=== PATIENT | male | born 1950 | race Caucasian/White ===

== ENCOUNTER 2017-02-06 20:38 | Emergency (ER) | payer MEDICAID, OTHER ==
[~2017-02-06] VITALS: Ht 172.7 cm; Wt 75.0 kg
[~2017-02-06 20:38] MED LIST: ACET325 PO; CALC500 PO; HYDR-3133 PO; LISI-591 PO; LORTA5 PO; PRIM250T PO; SERT100 PO; SIMV10 PO; TAB-TAB PO; XARE10TA PO
[2017-02-06 20:57] VITALS: BP 175/93; PULSE 104; RESP 18; TEMP 99.3; O2SAT 95
[2017-02-06 21:56] VITALS: BP 188/95; PULSE 105; RESP 18; O2SAT 98
[2017-02-06] MEDS ORDERED: XARE10TA PO (22:01)
[2017-02-06] MEDS ORDERED: OSCA200T PO (22:01)
[2017-02-06] MEDS ORDERED: ZOLO100T PO (22:01)
[2017-02-06] MEDS ORDERED: LISI-515 PO (22:01)
[2017-02-06] MEDS ORDERED: HYDR-3133 PO (22:01)
[2017-02-06] MEDS ORDERED: ZOCO10TA PO (22:01)
[2017-02-06] MEDS ORDERED: PRIM250T5 PO (22:01)
[2017-02-06] MEDS ORDERED: ALEN1TAB48 PO (22:04)
[2017-02-06] MEDS ORDERED: DRIS50002 PO (22:06)
[2017-02-06] MEDS ORDERED: MAPA325T PO (22:07)
--- NOTE | 2017-02-06 22:12 | PD ---
HPI Chief Complaint: GI Complaint Time Seen by Provider: 21:52 Travel History International Travel<30 days: No Contact w/Intl Traveler<30days: No Traveled to known affect area: No History of Present Illness HPI 66yo M with epilepsy from [facility] presents to the ED with c/o nonbloody, nonbilious vomiting today. Pt also has rhinorrhea and mild frontal headache. Denies any fever, chest pain, sob, abdominal pain, urinary complaints , or diarrhea. PFSH Past Medical History Cancer: No Cardiovascular Problems: Yes High Cholesterol: Yes Diabetes: No Endocrine: No Gastrointestinal Disorders: No Genitourinary: No Hepatitis: No Hiatal Hernia: No Hypertension: Yes Immune Disorder: No Musculoskeletal: Yes Neurologic: Yes (CONTROLLED EPILEPSY) Psychiatric: No Reproductive: No Respiratory: No Immunizations Current: Yes Seizures: Yes Thyroid Disease: No Tetanus Vaccination: Unknown Influenza Vaccination: Yes Past Surgical History Joint Replacement: No Pacemaker: No Other Surgery: Yes (HERNIA REPAIR) Social History Alcohol Use: No Tobacco Use: No Substance Use: No Allergies-Medications (Allergen,Severity, Reaction): Coded Allergies: Codeine (Verified Allergy, Severe, UNKNOWN, 02/06/17) *MDRO Multi-Drug Resistant Organism (Verified Allergy, Unknown, 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 SKIN: Focused skin assessment warm/dry. HEAD: Atraumatic. Normocephalic. EYES: Pupils equal and round. EOMI. No scleral icterus. No injection or drainage. ENT: Throat: Clear. NECK: No nuchal rigidity. Scoliosis. CARDIOVASCULAR: Regular rate and rhythm. No murmur appreciated. RESPIRATORY: No accessory muscle use. Clear to auscultation. Breath sounds equal bilaterally. GASTROINTESTINAL: Abdomen soft, non-tender, nondistended. MUSCULOSKELETAL: No obvious deformities. No clubbing. No cyanosis. No edema. NEUROLOGICAL: Awake and alert. No obvious cranial nerve deficits. Motor grossly within normal limits. Normal speech. PSYCHIATRIC: Appropriate mood and affect; insight and judgment normal. Data Data Last Documented VS Vital Signs Date Time Temp Pulse Resp B/P Pulse Ox O2 Delivery O2 Flow Rate FiO2 02/06/17 23:50 100 18 161/91 98 Room Air 02/06/17 20:57 99.3 Orders Complete Blood Count With Diff (02/06/17 22:07) Comprehensive Metabolic Panel (02/06/17 22:07) Influenzae A/B Antigen (02/06/17 22:07) Ct Brain W/O Iv Contrast(Rout) (02/06/17 ) Ondansetron Inj (Zofran Inj) (02/06/17 22:15) Magnesium (Mg) (02/06/17 22:07) Acetaminophen (Tylenol) (02/06/17 22:15) Sodium Chlor 0.9% 1000 Ml Inj (Ns 1000 M (02/06/17 22:15) Electrocardiogram (02/06/17 ) Labs Laboratory Tests Test 02/06/17 22:21 White Blood Count 10.8 TH/MM3 Red Blood Count 5.22 MIL/MM3 Hemoglobin 15.5 GM/DL Hematocrit 45.1 % Mean Corpuscular Volume 86.4 FL Mean Corpuscular Hemoglobin 29.6 PG Mean Corpuscular Hemoglobin 34.3 % Concent Red Cell Distribution Width 14.7 % Platelet Count 201 TH/MM3 Mean Platelet Volume 7.6 FL Neutrophils (%) (Auto) 90.1 % Lymphocytes (%) (Auto) 4.8 % Monocytes (%) (Auto) 4.6 % Eosinophils (%) (Auto) 0.1 % Basophils (%) (Auto) 0.4 % Neutrophils # (Auto) 9.7 TH/MM3 Lymphocytes # (Auto) 0.5 TH/MM3 Monocytes # (Auto) 0.5 TH/MM3 Eosinophils # (Auto) 0.0 TH/MM3 Basophils # (Auto) 0.0 TH/MM3 CBC Comment DIFF FINAL Differential Comment Sodium Level 137 MEQ/L Potassium Level 4.5 MEQ/L Chloride Level 103 MEQ/L Carbon Dioxide Level 25.8 MEQ/L Anion Gap 8 MEQ/L Blood Urea Nitrogen 8 MG/DL Creatinine 0.77 MG/DL Estimat Glomerular Filtration 101 ML/MIN Rate Random Glucose 125 MG/DL Calcium Level 9.0 MG/DL Magnesium Level 2.1 MG/DL Total Bilirubin 0.4 MG/DL Aspartate Amino Transf 33 U/L (AST/SGOT) Alanine Aminotransferase 20 U/L (ALT/SGPT) Alkaline Phosphatase 121 U/L Total Protein 8.2 GM/DL Albumin 3.8 GM/DL [facility] Medical Decision Making Medical Screen Exam Complete: Yes Emergency Medical Condition: Yes Interpretation(s) EKG: Sinus tachycardia at 107bpm. Normal axis. No ST segment elevation or depression. Differential Diagnosis Gastritis vs. dehydration vs. influenza vs. viral syndrome. Narrative Course 66yo M with vomiting today. Also with mild rhinorrhea and headache. Pt is nontoxic appearing. Labs reviewed, no leukocytosis. CMP unremarkable. CT brain negative for acute intracranial abnormalities. Remote lacunar infarct basal ganglia. Pt given zofran, acetaminophen and NS IVF. Pt reevaluated at bedside and states headache has resolved. Influenza negative. HR is now 99bpm. Pt tolerating PO. Abdominal exam benign. Return precautions given. Diagnosis Primary Impression: Vomiting Qualified Code: R11.2 - Non-intractable vomiting with nausea, unspecified vomiting type Patient Instructions: General Instructions Departure Forms: Tests/Procedures Additional Instructions: Please follow up with your PMD in 3-7 days. Return to the ED if symptoms worsen. Med/Other Pt SpecificInfo: Prescription(s) given Scripts Acetaminophen (Acetaminophen Extra Strength)500 Mg [id number] Mg PO Q6H PRN (PAIN SCALE 1 TO 4) #20 TAB Ref 0 Prov:Shirley Gibson DO 02/07/17 Ondansetron Odt (Zofran Odt)4 Mg Tab4 Mg SL Q8HR PRN (Nausea/Vomiting) #7 TAB Ref 0 Prov:Shirley Gibson DO 02/07/17 Shirley Gibson DO Feb 06, 2017 22:12
[2017-02-06] MEDS ORDERED: ONDANSETRON HCL 4 MG/2 ML VIAL IV PUSH ONE (22:15)
[2017-02-06] MEDS ORDERED: SODIUM CHLOR 0.9% 1000 ML INJ 1,000 ML IV ONE (22:15)
[2017-02-06] MEDS ORDERED: ACETAMINOPHEN 325 MG TAB PO ONE (22:15)
[2017-02-06 22:44] LABS: AUTOMATED NEUTROPHIL # 9.7 TH/MM3 (1.8-7.7); BASOPHIL % 0.4 % (0.0-2.0); EOSINOPHIL % 0.1 % (0.0-4.0); HEMATOCRIT 45.1 % (39.0-51.0); HEMO FLAGS DIFF FINAL; LYMPH % 4.8 % (9.0-44.0); LYMPHOCYTE # 0.5 TH/MM3 (1.0-4.8); MEAN CELL VOLUME 86.4 FL (80.0-100.0); MEAN CORPUSCULAR HEMOGLOBIN 29.6 PG (27.0-34.0); MEAN CORPUSCULAR HGB CONC 34.3 % (32.0-36.0); MONO % 4.6 % (0.0-8.0); NEUT % 90.1 % (16.0-70.0); PLATELET COUNT 201 TH/MM3 (150-450); RED BLOOD COUNT 5.22 MIL/MM3 (4.50-5.90); RED CELL DISTRIBUTION WIDTH 14.7 % (11.6-17.2); WHITE BLOOD COUNT 10.8 TH/MM3 (4.0-11.0)
[2017-02-06 23:05] LABS: ALKALINE PHOSPHATASE 121 U/L (45-117); ALT (GPT) 20 U/L (12-78); ANION GAP 8 MEQ/L (5-15); AST (GOT) 33 U/L (15-37); BICARBONATE 25.8 MEQ/L (21.0-32.0); BLOOD UREA NITROGEN 8 MG/DL (7-18); CHLORIDE 103 MEQ/L (98-107); GLOMERULAR FILTRATION RATE 101 ML/MIN (>89); MAGNESIUM 2.1 MG/DL (1.5-2.5); SODIUM (NA) 137 MEQ/L (136-145); TOTAL BILIRUBIN ADULT 0.4 MG/DL (0.2-1.0)
[2017-02-06 23:17] LABS: POTASSIUM 4.5 MEQ/L (3.5-5.1)
[2017-02-06 23:50] VITALS: BP 161/91; PULSE 100; RESP 18; O2SAT 98
--- NOTE | 2017-02-06 23:56 | RADRPT ---
EXAM DATE/TIME: 02/06/2017 23:30 [facility] COMPARISON: No previous studies available for comparison. INDICATIONS : Frontal headache along with vomiting today. RADIATION DOSE: 46.17 CTDIvol (mGy) MEDICAL HISTORY : Seizures. Cardiovascular disease SURGICAL HISTORY : Inguinal hernia repair. ENCOUNTER: Initial ACUITY: 1 day PAIN SCALE: 2/10 LOCATION: cranial TECHNIQUE: Multiple contiguous axial images were obtained of the head. Using automated exposure control and adj ustment of the mA and/or kV according to patient size, radiation dose was kept as low as reasonably a chievable to obtain optimal diagnostic quality images. FINDINGS: No acute hemorrhage, mass or shift. No hydrocephalus. A remote lacunar infarct left basal ganglia. No acute bony abnormalities. Mucosal thickening right maxillary sinus. CONCLUSION: 1. No acute intracranial abnormalities. Remote lacunar infarct left basal ganglia. Kvng Meng MD on February 06, 2017 at 23:51 Board Certified Radiologist. This report was verified electronically.
[2017-02-07] MEDS ORDERED: ZOFR4TAB3 SL (00:23)
[2017-02-07] MEDS ORDERED: ACET500T36 PO (00:23)
--- NOTE | 2017-02-07 13:37 | EKG ---
Date Performed: 02/06/2017 Time Performed: 22:34:35 PTAGE: 66 years EKG: SINUS TACHYCARDIA ABNORMAL RHYTHM ECG PREVIOUS TRACING : 02/23/2014 17.05 Compared to prior tracing no significant change DOCTOR: Lincoln Simms Interpretating Date/Time 02/07/2017 13:35:17
== END 2017-02-07 01:36 | disposition home or self-care (01) ==
LOC: NEDAMB 20:38 → NEPE 02-07 01:36
DX: R11.2 Nausea with vomiting, unspecified (principal); R51 Headache; G40.909 Epilepsy, unspecified, not intractable, without status epilepticus; I10 Essential (primary) hypertension; R94.31 Abnormal electrocardiogram [ECG] [EKG]
CPT/HCPCS: 70450; 80053; 83735; 85025; 87804; 93005; 96374; 96375; 99284; J2405; J7030